=== PATIENT | female | born 1970 | race Caucasian/White ===

== ENCOUNTER → 2024-03-17 07:16 | Outpatient (REF) | payer OTHER, SELFPAY | LOC: HWRAD 07:16 | PROVIDERS: ATTENDING PHYSICIAN Orthopaedic Surgery; FAMILY PHYSICIAN Nurse Practitioner | DX: M25.562 Pain in left knee (principal); M25.561 Pain in right knee | CPT/HCPCS: 73562; 73565 ==

== ENCOUNTER 2024-05-15 08:37 | Emergency (ER) | payer SELFPAY ==
[2024-05-15 08:51] VITALS: BP 186/119
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
[2024-05-15 09:30] VITALS: BP 125/64
[2024-05-15] MEDS: ADACEL 0.5 ML IM (09:35)
== END 2024-05-15 09:45 | disposition home or self-care (01) ==
LOC: EMR 08:37
PROVIDERS: EMERGENCY PHYSICIAN Emergency Medicine; FAMILY PHYSICIAN Nurse Practitioner
DX: S60.222A Contusion of left hand, initial encounter (principal); S60.512A Abrasion of left hand, initial encounter; M25.561 Pain in right knee; M54.2 Cervicalgia; V43.52XA Car driver injured in collision with other type car in traffic accident, initial encounter; Y92.410 Unspecified street and highway as the place of occurrence of the external cause; Z23 Encounter for immunization; I10 Essential (primary) hypertension; K21.9 Gastro-esophageal reflux disease without esophagitis; Z90.49 Acquired absence of other specified parts of digestive tract
CPT/HCPCS: 99283; 90471; 73130; 90715

== ENCOUNTER → 2024-06-29 07:42 | Outpatient (REF) | payer OTHER, SELFPAY | LOC: HWWDC 07:42 | PROVIDERS: ATTENDING PHYSICIAN Nurse Practitioner | DX: Z12.31 Encounter for screening mammogram for malignant neoplasm of breast (principal) | CPT/HCPCS: 77063; 77067 ==